=== PATIENT | female | born 1970 | race Caucasian/White ===

== ENCOUNTER 2024-01-26 14:02 | Emergency (ER) | payer BC, SELFPAY ==
[2024-01-26] VITALS (10 sets, daily range): BP systolic 128–146; BP diastolic 74–88; PULSE 94–106; RESP 20; TEMP 36.2–36.3; O2SAT 94–100; BMI 33.1
--- NOTE | 2024-01-26 14:33 | ED_ITS ---
HPI - General Adult General Chief complaint: Shortness of Breath/Dyspnea Stated complaint: Short of breath, chest pressure Time Seen by Provider: 01/26/24 14:24 History of Present Illness HPI narrative: This 53-year-old female comes in reporting shortness of breath and some abdominal discomfort that no radiates up into her upper chest and neck. She states that she has a history of asthma and began to notice some wheezing. She did use albuterol without much relief however she arrives here speaking in complete sentences with normal oximetry and no use of accessory muscles for breathing. She does have increased heart rate. She does not report any vomiting, lightheadedness, or diaphoresis. She does not have any exercise intolerance. She states that she had a cardiac workup with negative results the within the past year. Related Data Home Medications ?Medication ?Instructions ?Recorded ?Confirmed albuterol 90 mcg-budesonide 80 2 inh inhalation QID PRN 01/26/24 01/26/24 mcg/actuation HFA aerosol inhaler amlodipine 5 mg tablet 5 mg PO DAILY 01/26/24 01/26/24 cetirizine 10 mg capsule (Zyrtec) 10 mg PO DAILY 01/26/24 01/26/24 dupilumab 200 mg/1.14 mL 200 mg subcut Q2W 01/26/24 01/26/24 subcutaneous pen injector ([employer]) esomeprazole magnesium 20 mg 20 mg PO DAILY 01/26/24 01/26/24 capsule,delayed release (Nexium 24HR) fluticasone 100 mcg-salmeterol 50 1 inh inhalation BID 01/26/24 01/26/24 mcg/dose blistr powdr for inhalation (Advair Diskus) fluticasone propionate 50 1 spray intranasal DAILY PRN 01/26/24 01/26/24 mcg/actuation nasal spray,suspension (Flonase Allergy Relief) losartan 50 mg tablet 50 mg PO DAILY 01/26/24 01/26/24 rosuvastatin 10 mg tablet 10 mg PO DAILY 01/26/24 01/26/24 Previous Rx's ?Medication ?Instructions ?Recorded doxycycline hyclate 100 mg capsule 100 mg PO BID 7 days #14 caps 01/26/24 Allergies Allergy/AdvReac Type Severity Reaction Status Date / Time cephalexin [From Keflex] Allergy Intermediate Hives Verified 01/26/24 14:16 paroxetine [From Paxil] Allergy Intermediate Hives Verified 01/26/24 14:16 sertraline [From Zoloft] Allergy Intermediate Hives Verified 01/26/24 14:16 Sulfa (Sulfonamide Allergy Intermediate Hives Verified 01/26/24 14:16 Antibiotics) Penicillins Allergy Unknown Hives Verified 01/26/24 14:16 codeine AdvReac Intermediate Abdominal Verified 01/26/24 14:16 Pain Review of Systems Status of ROS: Reports: 10 or more systems reviewed and unremarkable except as noted in History and below Narrative: Constitutional: No fevers, no weight gain or loss. Eyes: No discharge. No vision changes. HENT: No congestion, no sore throat, no ear pain. Cardiovascular: No palpitations. Respiratory: She reports shortness of breath with wheezes. Gastrointestinal: No abdominal pain, no vomiting, no diarrhea. Genitourinary: No dysuria, no hematuria. Musculoskeletal: Normal range of motion. Skin: No rashes, no pruritis. Neurological: No dizziness, weakness, sensory change, speech change. Endo/Heme/Allergies: No bruising or bleeding. No polydipsia. Pysch: no suicidality, no anxiety, no insomnia. All other systems reviewed and are negative. PFSH PFS Social History Smoking Status: Never smoker Do you use any of these nicotine containing products: None How often do you have a drink containing alcohol: never AUDIT-C Alcohol total score: 0 Non-prescribed substance use: denies use service: No Exam Narrative: Exam Narrative: Constitutional: Well-developed, well-nourished, no acute distress. HEENT: Normocephalic, atraumatic. Neck: Normal range of motion. Nontender. Supple. Heart: Regular. No murmurs. Tachycardia with a rate around 105-110 beats per minute. Intact distal pulses. Lungs: Clear to auscultation. No chest discomfort. No wheezes, rhonchi, or rale s. Abdomen: Normal bowel sounds. Nontender. No rebound tenderness. Genitalia: Deferred. Back: No midline tenderness. Normal range of motion. Extremities: Normal range of motion. No injury. Skin: Intact. No rash. Warm. No erythema or pallor. Neurologic: No altered sensation. No weakness. Alert and oriented. Psychiatric: No suicidality. No anxiety or depression. No insomnia. Nursing notes and vitals signs are reviewed. Const: Vital Signs, click to edit/add: Vital Signs - 24 hr 01/26/24 14:06 01/26/24 14:21 01/26/24 14:32 Temperature 97.4 F L Pulse Rate 104 H Pulse Rate [Pulse Oximeter] 106 H Respiratory Rate 20 Blood Pressure 142/88 H Blood Pressure [Ri ght Upper Arm] 146/74 H Pulse Oximetry 94 94 Oxygen Delivery Me thod Room Air 01/26/24 15:00 01/26/24 15:01 01/26/24 15:18 Temperature 97.1 F L Pulse Rate 106 H 103 H Pulse Rate [Pulse Oximeter] Respiratory Rate Blood Pressure 143/82 H Blood Pressure [Ri ght Upper Arm] Pulse Oximetry 96 94 Oxygen Delivery Me thod 01/26/24 15:20 Temperature Pulse Rate 105 H Pulse Rate [Pulse Oximeter] Respiratory Rate Blood Pressure Blood Pressure [Ri ght Upper Arm] Pulse Oximetry 96 Oxygen Delivery Me thod Course Vital Signs Vital signs: Initial Vital Signs Temperature 97.4 F L 01/26/24 14:06 Temperature Source Temporal Artery Scan 01/26/24 14:06 Pulse Rate 106 H 01/26/24 14:06 Pulse Rhythm Regular 01/26/24 14:06 Pulse Strength 3+ Normal 01/26/24 14:06 Respiratory Rate 20 01/26/24 14:06 Blood Pressure 146/74 H 01/26/24 14:06 Blood Pressure Mean 98 01/26/24 14:06 Blood Pressure Position Semi-Fowlers 01/26/24 14:06 Pulse Oximetry 94 01/26/24 14:06 Oxygen Delivery Method Room Air 01/26/24 14:06 Vital Signs Temperature 97.4 F L 01/26/24 14:06 Pulse Rate 106 H 01/26/24 14:06 Respiratory Rate 20 01/26/24 14:06 Blood Pressure 146/74 H 01/26/24 14:06 Pulse Oximetry 94 01/26/24 14:06 Oxygen Delivery Method Room Air 01/26/24 14:06 Temperature 97.1 F L 01/26/24 15:18 Pulse Rate 105 H 01/26/24 15:20 Respiratory Rate 20 01/26/24 14:06 Blood Pressure 143/82 H 01/26/24 15:01 Pulse Oximetry 96 01/26/24 15:20 Oxygen Delivery Method Room Air 01/26/24 14:06 Medications Administered Medications: Discontinued Medications Generic Name Dose Route Start Last Admin Trade Name Tc PRN Reason Stop Dose Admin Albuterol/Ipratropium 1 neb 01/26/24 15:43 01/26/24 15:48 Iprat-Albut 0.5-2.5 Mg/3 Ml Neb IH 01/26/24 15:44 1 neb ONCE ONE Administration Lidocaine/Aluminum/Magnesium/Simeth 30 ml 01/26/24 14:32 01/26/24 14:53 Gi Cocktail (Visc Lido/Antacid) 30 Ml PO 01/26/24 14:33 30 ml ONCE ONE Administration Methylprednisolone Sodium Succinate 125 mg 01/26/24 14:32 01/26/24 14:54 Methylprednisolone Sod Succ 62.5 Mg/Ml (125) IVP 01/26/24 14:33 125 mg ONCE ONE Administration Medical Decision Making Lab Data Labs: Lab Results 01/26/24 Range/Units 14:35 WBC 19.58 H (4.50-11.00) K/uL RBC 5.17 (4.00-5.20) m/uL Hgb 10.8 L (12.0-16.0) gm/dL Hct 35.3 (33.0-51.0) % MCV 68 L (80-100) fL MCH 21 L (26-34) pg MCHC 31 L (32-36) gm/dL RDW Coeff of Martha 15.3 (11.5-15.5) % Plt Count 340 (140-440) K/uL Neut % (Auto) 85.7 H (42.0-72.0) % Lymph % (Auto) 6.5 L (20-44) % Parker % (Auto) 3.3 (0.0-11.0) % Eos % (Auto) 4.1 (0.0-7.0) % Baso % (Auto) 0.2 (0.0-3.0) % Neut # (Auto) 16.80 H (1.7-7.0) K/uL Lymph # (Auto) 1.30 (0.90-2.90) K/uL Parker # (Auto) 0.60 (0.00-0.90) K/UL Eos # (Auto) 0.80 H (0.00-0.50) K/uL Baso # (Auto) 0.00 (0.00-0.30) K/uL Abs Immat Gran (auto) 0.00 (0.00-0.30) K/uL Imm/Tot Granulo (auto) 0.2 % Sodium 137 (135-149) mmol/L Potassium 3.9 (3.6-5.1) mmol/L Chloride 103 (96-114) mmol/L Carbon Dioxide 24 (20-32) mmol/L Anion Gap 10 (7-15) mEq/L BUN 14 (7-30) mg/dL Creatinine 0.9 (0.5-1.5) mg/dL Estimated Creat Clear 67.67 Estimated GFR 76 ml/min Glucose 110 (60-115) mg/dL Calcium 8.9 (8.4-10.6) mg/dL POC Troponin I 0.02 (0.01-0.04) ng/ml Imaging Data Chest x-ray: Radiologist's impression: No acute cardiopulmonary disease. ECG Data Attestation: I personally reviewed and interpreted this ECG as follows: Interpretation: Sinus tachycardia. Rate is 114 beats per minute. There are no ST or T-wave abnormalities. Discharge Plan Discharge Clinical Impression: Acute lower respiratory infection Patient Disposition: Home, Self-Care Condition: Unchanged Additional Instructions: Take medication as prescribed. Follow up with MD or return if worsening. Prescriptions: New doxycycline hyclate 100 mg capsule 100 mg PO BID 7 Days Qty: 14 0RF No Action fluticasone propion-salmeterol [Advair Diskus] 100-50 mcg/dose blister with device 1 inh inhalation BID amlodipine 5 mg tablet 5 mg PO DAILY rosuvastatin 10 mg tablet 10 mg PO DAILY losartan 50 mg tablet 50 mg PO DAILY esomeprazole magnesium [Nexium 24HR] 20 mg capsule,delayed release(DR/EC) 20 mg PO DAILY Zyrtec 10 mg capsule 10 mg PO DAILY fluticasone propionate [Flonase Allergy Relief] 50 mcg/actuation spray,suspension 1 spray intranasal DAILY PRN Rx Instructions: administer into each nostril Dupixent Pen 200 mg/1.14 mL pen injector 200 mg subcut Q2W albuterol-budesonide 90-80 mcg/actuation HFA aerosol inhaler 2 inh inhalation QID PRN Follow Up/Referrals: Provider,Not a Local [Primary Care Provider] - Stand Alone Forms: elicit Info Instructions
[2024-01-26 14:43] LABS: Basophils Percent Auto 0.2 % (0.0-3.0); Eosinophils Percent Auto 4.1 % (0.0-7.0); Hematocrit 35.3 % (33.0-51.0); Hemoglobin* 10.8 gm/dL (12.0-16.0); Immature Granulocytes Pct Auto 0.2 %; Lymphocytes Percent Auto 6.5 % (20-44); Mean Corpuscular HGB Conc 31 gm/dL (32-36); Mean Corpuscular Hemoglobin 21 pg (26-34); Mean Corpuscular Volume 68 fL (80-100); Monocytes Percent Auto 3.3 % (0.0-11.0); Neutrophils Percent Auto 85.7 % (42.0-72.0); Platelet Count* 340 K/uL (140-440); RDW Coefficient of Variation % 15.3 % (11.5-15.5); Red Blood Count 5.17 m/uL (4.00-5.20); White Blood Count* 19.58 K/uL (4.50-11.00)
[2024-01-26 14:49] LABS: Slide Review Reflex No
[2024-01-26 14:52] LABS: Troponin, Point-of-Care* 0.02 ng/ml (0.01-0.04)
[2024-01-26] MEDS: GI COCKTAIL (VISC LIDO/ANTACID) 30 ML PO (14:53)
[2024-01-26] MEDS: METHYLPREDNISOLONE SOD SUCC 62.5 MG/ML (125) 125 MG IVP (14:54)
--- NOTE | 2024-01-26 14:56 | CRLHL7_ITS ---
For Patients: As a result of the Cures Act, medical imaging exams and procedure reports are released immediately into your electronic medical record. You may view this report before your referring provider. If you have questions, please contact your health care provider. Indication: SHORTNESS OF BREATH Technique: PA and lateral views of the chest. Comparison: None. Findings: Normal cardiomediastinal silhouette. No focal consolidation, pleural effusions, or visualized pneumothorax. Impression: No acute cardiopulmonary disease. Dictated by Delbert Alvarez MD @ 01/26/2024 4:00:41 PM (Electronically Signed)
[2024-01-26 14:57] LABS: Chloride* 103 mmol/L (96-114); Potassium* 3.9 mmol/L (3.6-5.1); Sodium* 137 mmol/L (135-149)
[2024-01-26 15:00] LABS: Anion Gap 10 mEq/L (7-15); Blood Urea Nitrogen* 14 mg/dL (7-30); Carbon Dioxide* 24 mmol/L (20-32); Creatinine* 0.9 mg/dL (0.5-1.5); Est. Creatinine Clearance* 67.67; Estimated Glomerular Filt Rate 76 ml/min
[2024-01-26 15:01] LABS: Calcium* 8.9 mg/dL (8.4-10.6); Glucose* 110 mg/dL (60-115)
[2024-01-26] MEDS: IPRAT-ALBUT 0.5-2.5 MG/3 ML NEB 1 NEB IH (15:48)
== END 2024-01-26 16:39 | disposition home or self-care (01) ==
PROVIDERS: Emergency Provider Emergency Medicine Emergency Medical Services
DX: J06.9 Acute upper respiratory infection, unspecified (principal)
CPT/HCPCS: 36415; 71046; 80048; 84484; 85025; 93005; 94640; 99284; 99285; A9270; J2919